=== PATIENT | male | born 1955 | race Caucasian/White ===

== ENCOUNTER 2016-05-23 05:38 | Inpatient (IN) | payer OTHER ==
[~2016-05-23] VITALS: Ht 172.7 cm; Wt 68.0 kg
[2016-05-23] VITALS (14 sets, daily range): BP systolic 133–159; BP diastolic 65–97
[~2016-05-23 05:38] MED LIST: ATORVASTATIN CA40 MG ORAL; LISINOPRIL40 MG ORAL; OXYCONTIN10 MG ORAL; PERCOCET 10-321 EACH ORAL; ZOLPIDEM TARTRA10 MG ORAL
--- NOTE | 2016-05-23 07:07 | Pre-Procedure Note/Attestation ---
Pre-Procedure Note/Attestation Complete Prior to Procedure Procedure Narrative: Painful retained hardware L4-5 posterior spine, for removal. Indications for Procedure Pre-Operative Diagnosis: Painful retained posterior hardware L4-5 Attestation I attest that I discussed the nature of the procedure; its benefits; risks and complications; and alternatives (and the risks and benefits of such alternatives ), prior to the procedure, with the patient (or the patient's legal packaging sales representative). I attest that, if there was a reasonable possibility of needing a blood transfusion, the patient (or the patient's legal packaging sales representative) was given the [facility] standardized written summary, pursuant to the [place] Blood Safety Act ([place] Health and Safety Code # 1645, as amended). I attest that I re-evaluated the patient just prior to the surgery and that there has been no change in the patient's H&P, except as documented below: CIARA STEPHEN May 23, 2016 07:07
[2016-05-23] MEDS ORDERED: Thrombin 5000 units TOPIC ONE (08:34)
[2016-05-23] MEDS ORDERED: Bacitracin 50000 Units Vial ONE (08:35)
[2016-05-23] MEDS ORDERED: Thrombin 5000 units spray kit TOPIC ONE (08:35)
[2016-05-23] MEDS ORDERED: Gelfoam Absorbable 1gm powder pkt TOPIC ONE (08:35)
[2016-05-23] MEDS ORDERED: LR 1000ml ONE (09:00)
[2016-05-23] MEDS ORDERED: Glycopyrrolate 0.2mg/ml 1ml Vial ONE (09:00)
[2016-05-23] MEDS ORDERED: Neostigmine 1mg/ml 10ml Inj ONE (09:00)
[2016-05-23] MEDS ORDERED: Sterile Water Irrig 1000ml IRRIG ONE (09:00)
[2016-05-23] MEDS ORDERED: Zemuron 50mg/5ml Inj IV ONE (09:00)
[2016-05-23] MEDS ORDERED: Propofol 10mg/ml 20ml IV ONE (09:00)
[2016-05-23] MEDS ORDERED: fentaNYL 250mcg/5ml ONE (09:00)
[2016-05-23] MEDS ORDERED: NS Irrig 1000ml ONE (09:00)
[2016-05-23] MEDS ORDERED: Dexamethasone 4mg/ml vial ONE (09:00)
[2016-05-23] MEDS ORDERED: Lidocaine 1% MPF 10mg/ml 5ml ONE (09:00)
[2016-05-23] MEDS ORDERED: Bupivacaine w/Epi 0.5% 30ml Vial INJ ONE (09:16)
[2016-05-23] MEDS ORDERED: LR 1000ml 1,000 ML IVLG SCH (09:25)
--- NOTE | 2016-05-23 09:25 | Anethesia Preoperative Eval ---
Anesthesia Pre-op PMH/ROS General Date of Evaluation: May 23, 2016 Time of Evaluation: 09:31 Anesthesiologist: Sara ASA Score: ASA 3 Mallampati Score Class I : Soft palate, uvula, fauces, pillars visible Class II: Soft palate, uvula, fauces visible Class III: Soft palate, base of uvula visible Class IV: Only hard plate visible Mallampati Classification: Class II Surgeon: Krista Diagnosis: Back Pain Surgical Procedure: Posterior Removal Lumbar Instruments Anesthesia History: none Family History: no anesthesia problems Allergies: Coded Allergies: No Known Allergies (Unverified , 05/20/16) Medications: see eMAR Past Medical History Cardiovascular: Reports: HTN, other - HL Gastrointestinal/Genitourinary: Reports: GERD, other - Prostate Cancer Hematology/Immune: Reports: other - Prostate Cancer PSxH Narrative: Spine SX, B Shoulder SX Anesthesia Pre-op Phys. Exam Physician Exam Last Vital Signs Date Time Temp Pulse Resp B/P Pulse Ox O2 Delivery O2 Flow Rate FiO2 05/23/16 06:30 97.0 71 20 133/89 99 Room Air Constitutional: NAD Neurologic: CN 2-12 intact Cardiovascular: RRR Respiratory: CTA Gastrointestinal: S/NT/ND Airway Exam Mallampati Score: Class II MO: full ROM: limited Teeth: intact Anesthesia Pre-op A/P Risk Assessment & Plan Assessment: ASA 3 Plan: GA, BIS, Glidescope Status Change Before Surgery: No Pre-Antibiotics Dru Grams Ancef IV Given Within 1 Hr of Incision: Yes Time Given: 09:46 Roger Ruiz MD May 23, 2016 09:25
--- NOTE | 2016-05-23 09:28 | Immediate Post-Op Evaluation ---
Immediate Post-Op Evalulation Immediate Post-Op Evalulation Procedure: Posterior Removal Lumbar Instruments Date of Evaluation: May 23, 2016 Time of Evaluation: 11:59 IV Fluids: 1000 LR Blood Products: 0 Estimated Blood Loss: 25 Urinary Output: 0 Blood Pressure Systolic: 156 Blood Pressure Diastolic: 95 Pulse Rate: 93 Respiratory Rate: 16 O2 Sat by Pulse Oximetry: 100 Temperature (Fahrenheit): 97.6 Pain Score (1-10): 3 Nausea: No Vomiting: No Complications 0 Patient Status: awake, reacts, patent, extubated, none Hydration Status: adequate Dru Grams Ancef IV Given Within 1 Hr of Incision: Yes Time Given: 09:46 Roger Ruiz MD May 23, 2016 09:28
[2016-05-23] MEDS ORDERED: Norco 5mg/325mg tab ORAL PRN (09:30)
[2016-05-23] MEDS ORDERED: Midazolam 2mg/2ml Inj IVP PRN (09:30)
[2016-05-23] MEDS ORDERED: Meperidine 25mg/ml Inj IV PRN (09:30)
[2016-05-23] MEDS ORDERED: Ketorolac 30mg Inj IV PRN (09:30)
[2016-05-23] MEDS ORDERED: DiphenhydrAMINE 50mg/ml Inj IVP PRN ×2 (09:30→11:45)
[2016-05-23] MEDS ORDERED: Hydromorphone 0.5mg/0.5ml inj IVP PRN (09:30)
[2016-05-23] MEDS ORDERED: Atropine Inj 1mg/10ml Syr IV PRN (09:30)
[2016-05-23] MEDS ORDERED: Metoclopramide 10mg/2ml Inj IVP PRN (09:30)
[2016-05-23] MEDS ORDERED: fentaNYL 100 mcg/2 mL IV PRN (09:30)
[2016-05-23] MEDS ORDERED: Ketorolac 60mg Inj IV PRN (09:30)
[2016-05-23] MEDS ORDERED: Norco 7.5mg/325mg tab ORAL PRN (09:30)
[2016-05-23] MEDS ORDERED: LORazepam Inj 2mg/ml 1ml IV PRN (09:30)
[2016-05-23] MEDS ORDERED: Labetalol 5mg/ml 20ml vial IV PRN (09:30)
[2016-05-23] MEDS ORDERED: Oxycodone/Acetaminophen 5-325 ORAL PRN (09:30)
[2016-05-23] MEDS ORDERED: Acetaminophen (Non formulary) 100 ML IV ONE (09:45)
[2016-05-23] MEDS ORDERED: Acetaminophen 650 MG SUPP RECTAL PRN (11:45)
[2016-05-23] MEDS ORDERED: LORazepam 1mg tab ORAL PRN (11:45)
--- NOTE | 2016-05-23 11:53 | Operative Note - PDOC ---
Operative Note Operative Note Pre-op Diagnosis: Painful retained posterior hardware L4-5 Procedure: Hardware removal, fusion exploration and fusion supplementation L4-5 Post-op Diagnosis: same as pre-op Surgeon: Krista Beef Grader: CHEO Stephen Anesthesiologist: Migue Story Anesthesia: general Specimen: yes Complications: none Condition: stable Estimated Blood Loss: minimal Implant(s) used?: Yes - Graft On placed in lateral gutter to supplement previous lateral fusion bone CIARA STEPHEN May 23, 2016 11:53
[2016-05-23] MEDS ORDERED: Naloxone 0.4mg/ml Inj IVP PRN (13:00)
[2016-05-23] MEDS ORDERED: Rate Change PCA 1 Each MISC PRN (13:00)
[2016-05-23] MEDS: PCA HYDROmorphone 1mg/ml 30 ML IV PRN (13:32)
--- NOTE | 2016-05-23 16:19 | Diagnostic Imaging Report ---
Indication: Left lower back pain, intraoperative Technique: Digital intraoperative images Comparison: 08/24/2015 Findings: Intraoperative images document removal of previously demonstrated posterior fusion hardware. Impression: Intraoperative images, as described
[2016-05-23] MEDS: Lisinopril 20mg tab ORAL SCH (17:26)
[2016-05-23] MEDS: Docusate 100mg tablet ORAL SCH (17:26)
[2016-05-23] MEDS: ceFAZolin sod 1 GM in D5W 55 ML IV SCH (17:26)
--- NOTE | 2016-05-23 18:27 | Operative Note - Dictated ---
DATE OF OPERATION: 05/23/2016 FACILITY: [facility]. ANESTHESIOLOGIST: Roger Ruiz M.D. ANESTHESIA: General endotracheal with arterial blood pressure monitoring. SURGEON: Ed Velasco M.D. COSMETICS MACHINE OPERATOR: MARLIN Rossi PREOPERATIVE DIAGNOSIS: Status post posterior lumbar interbody graft at the L4-5 level with pedicle screw fixation at L4 and L5 with connecting rods, anterior lumbar interbody fusion at L3-4 with evidence of healing at those levels anteriorly, but pain over the residual posterior hardware, relieved with injection of local anesthetic temporarily. Position of hardware suggesting abutment with the facet joints above. PROCEDURE: Bilateral muscle splitting paralumbar incision for removal of hardware and augmentation of a bilateral lateral graft using [place] after removal of the hardware and preparation of the graft bed. DESCRIPTION OF PROCEDURE: The patient was prepped and draped in the usual manner. He was induced supine and then turned prone onto the Justice table. His hips were well padded as were his knees and chest. Markers were placed over the skin to identify the position of the pedicle screw hardware. Markers were made paramidline at a distance of 5 cm outlining the distance from the midline and the superior and inferior extent of the hardware. Once the patient was prepped and draped in the prone position, two paralumbar incisions were made, carried down through skin and subcutaneous tissue to the extensor muscles, which were then split until the hardware was palpable. The screw heads were identified and the locking screws were removed. The connecting zach was then freed and removed after removing excess bone with a Midas bur. The screws themselves were then removed and the graft bed was inspected. There were connections of bone between L4 and L5, which were not completely solid. The graft bed was prepared with a Midas bur and Alexus was then placed between the transverse process and lateral gutter of L4 and L5 on both the right and left sides. All four screws, two rods, and all pop-lock mechanisms were removed. The graft bed was fully prepared on both sides and then roughened with the Midas and laid over with [place] to promote, so the fixation of the lateral graft would appear that the interbody graft in some views had healed across the interspace. However, the hardware was causing problems of the extensor muscle and the facet joints posteriorly. The wound was closed in layers after copious irrigation, including the muscle and fascial level, skin, and subcutaneous. Blood loss was 100 mL. The patient tolerated the procedure well and returned to recovery room in good condition. Ed Velasco M.D. DR: HIGINIO JOB#: [id number] CC:
[2016-05-23] MEDS: PCA shift volume MISC SCH (19:00)
[2016-05-24 00:18] VITALS: BP 130/70
[2016-05-24] MEDS: ceFAZolin sod 1 GM in D5W 55 ML IV SCH ×2 (02:19→10:17)
[2016-05-24 04:33] VITALS: BP 119/67
[2016-05-24] MEDS: PCA shift volume MISC SCH ×2 (07:21→19:12)
[2016-05-24 08:00] VITALS: BP 136/81
[2016-05-24] MEDS: Docusate 100mg tablet ORAL SCH ×2 (08:48→18:30)
[2016-05-24] MEDS: Lisinopril 20mg tab ORAL SCH (08:48)
--- NOTE | 2016-05-24 09:06 | History & Physical ---
History and Physical History & Physicial 4-17 HP reviewed care noted d/w RN follow up exam LUCIO DOYLE May 24, 2016 09:06
--- NOTE | 2016-05-24 09:07 | General Progress Note ---
Assessment/Plan Assessment/Plan Painful retained posterior hardware L4-5 Hardware removal, fusion exploration and fusion supplementation L4-5 urinary retention history of prostate issues PLAN 1. incentive spirometry 2. quick for now; remove in am and monitor UO 3. PT evaluation and therapy 4. Hydration 5. Pain management 6. discharge once stable with outpatient follow up Subjective Allergies: Coded Allergies: No Known Allergies (Unverified , 05/20/16) Subjective urinary retention needed quick to be placed Objective Last 24 Hour Vital Signs Date Time Temp Pulse Resp B/P Pulse Ox O2 Delivery O2 Flow Rate FiO2 05/24/16 08:48 136/81 05/24/16 04:33 97.7 68 19 119/67 97 Room Air 05/24/16 04:00 18 05/24/16 00:18 98.1 80 19 130/70 97 Nasal Cannula 3.0 05/24/16 00:00 18 05/23/16 20:26 97.9 84 19 133/72 98 Nasal Cannula 3.0 05/23/16 20:00 18 05/23/16 17:26 150/88 05/23/16 17:16 98.4 71 18 150/88 99 Nasal Cannula 3.0 05/23/16 15:21 18 05/23/16 14:51 18 05/23/16 14:02 98.8 05/23/16 14:00 18 05/23/16 13:45 16 05/23/16 13:45 98.0 83 18 141/65 100 Nasal Cannula 3.0 05/23/16 13:32 18 05/23/16 13:30 77 17 145/87 100 Nasal Cannula 3.0 05/23/16 13:15 81 18 142/89 100 Nasal Cannula 3.0 05/23/16 13:01 98.8 05/23/16 13:00 73 18 143/89 100 Nasal Cannula 3.0 05/23/16 12:45 73 16 145/92 100 Nasal Cannula 3.0 05/23/16 12:30 73 17 157/97 100 Nasal Cannula 3.0 05/23/16 12:20 73 18 156/96 100 Nasal Cannula 3.0 05/23/16 12:10 81 19 158/97 100 Nasal Cannula 3.0 05/23/16 11:58 81 19 158/85 99 Simple Mask 6.0 05/23/16 11:53 83 16 159/93 99 Simple Mask 6.0 05/23/16 11:49 93 16 100 05/23/16 11:48 97.6 95 20 158/79 99 Simple Mask 6.0 Intake and Output 05/23/16 05/24/16 19:00 07:00 Intake Total 1650 ml 1105 ml Output Total 25 ml 2050 ml Balance 1625 ml -945 ml Intake Oral 350 ml IV Total 1300 ml 1105 ml Output Urine Total 1400 ml Estimated Blood Loss 25 ml Other 650 ml # Voids 4 Height (Feet): 5 Height (Inches): 8.00 Weight (Pounds): 150 Objective WDWN NAD clear breath sounds bilaterally without rhonchi or wheeze [id number] without MRG NABS nontender no HSM no CCE nonfocal LUCIO DOYLE May 24, 2016 09:07
[2016-05-24 12:00] VITALS: BP 100/62
--- NOTE | 2016-05-24 12:22 | 48 Hour Post Anesthesia Eval ---
Post Anesthesia Evaluation Procedure: Posterior Removal Lumbar Instruments Date of Evaluation: May 24, 2016 Time of Evaluation: 12:21 Blood Pressure Systolic: 136 0: 80 Pulse Rate: 77 Respiratory Rate: 20 Temperature (Fahrenheit): 97.3 O2 Sat by Pulse Oximetry: 96 Airway: patent Nausea: No Vomiting: No Pain Intensity: 3 Hydration Status: adequate Cardiopulmonary Status: STABLE Mental Status/LOC: patient returned to baseline Follow-up Care/Observations: NA Post-Anesthesia Complications: NA Follow-up care needed: N/A JAYNE MEHTA M.D. May 24, 2016 12:22
[2016-05-24] MEDS: PCA HYDROmorphone 1mg/ml 30 ML IV PRN (14:32)
[2016-05-24] MEDS: Milk of Magnesia 30ml Ud ORAL PRN ×2 (14:51→20:34)
[2016-05-24 16:00] VITALS: BP 128/77
[2016-05-24 20:00] VITALS: BP 131/78
[2016-05-25 04:00] VITALS: BP 110/67
[2016-05-25] MEDS: PCA shift volume MISC SCH ×2 (07:00→19:21)
[2016-05-25 08:00] VITALS: BP 117/61
[2016-05-25] MEDS ORDERED: Naloxone 0.4mg/ml Inj IVP PRN ×2 (08:08→13:00)
[2016-05-25] MEDS: Lisinopril 20mg tab ORAL SCH (08:38)
[2016-05-25] MEDS: Milk of Magnesia 30ml Ud ORAL PRN ×2 (08:38→13:07)
[2016-05-25] MEDS: Docusate 100mg tablet ORAL SCH ×2 (08:39→17:05)
--- NOTE | 2016-05-25 08:56 | General Progress Note ---
Assessment/Plan Assessment/Plan Painful retained posterior hardware L4-5 Hardware removal, fusion exploration and fusion supplementation L4-5 urinary retention history of prostate issues PLAN 1. incentive spirometry 2. remove quick and call if retention 3. PT evaluation and therapy 4. Hydration 5. Pain management 6. discharge in am Subjective Allergies: Coded Allergies: No Known Allergies (Unverified , 05/20/16) Subjective doing better pain better Objective Last 24 Hour Vital Signs Date Time Temp Pulse Resp B/P Pulse Ox O2 Delivery O2 Flow Rate FiO2 05/25/16 08:38 117/61 05/25/16 08:00 19 05/25/16 08:00 97.9 95 21 117/61 97 Room Air 05/25/16 04:00 97.7 87 20 110/67 96 Room Air 05/25/16 04:00 16 05/25/16 00:00 16 05/24/16 20:00 98.1 77 20 131/78 99 Room Air 05/24/16 20:00 18 05/24/16 16:00 20 05/24/16 16:00 99.0 75 20 128/77 98 Room Air 05/24/16 15:02 97.3 05/24/16 14:35 18 05/24/16 12:22 77 20 96 05/24/16 12:00 16 05/24/16 12:00 97.9 75 18 100/62 99 Room Air Intake and Output 05/24/16 05/25/16 19:00 07:00 Intake Total 1345 ml 860 ml Output Total 2900 ml 2825 ml Balance -1555 ml -1965 ml Intake Oral 240 ml 360 ml IV Total 1105 ml 500 ml Output Urine Total 2900 ml 2825 ml # Bowel Movements 1 1 Height (Feet): 5 Height (Inches): 8.00 Weight (Pounds): 150 Objective WDWN NAD clear breath sounds bilaterally without rhonchi or wheeze [id number] without MRG NABS nontender no HSM no CCE nonfocal LUCIO DOYLE May 25, 2016 08:56
[2016-05-25] MEDS ORDERED: DiphenhydrAMINE 50mg/ml Inj IVP PRN (09:00)
[2016-05-25] MEDS ORDERED: Rate Change PCA 1 Each MISC PRN (09:00)
[2016-05-25] MEDS ORDERED: HYDROmorphone 1mg/ml Carpuject SUBQ PRN (11:45)
[2016-05-25 12:00] VITALS: BP 117/70
[2016-05-25] MEDS ORDERED: Norco 7.5mg/325mg tab ORAL PRN ×2 (13:00)
[2016-05-25] MEDS ORDERED: HYDROmorphone 1mg/ml Carpuject IVP PRN (13:00)
[2016-05-25] MEDS ORDERED: Norco 5mg/325mg tab ORAL PRN (13:00)
[2016-05-25] MEDS: PCA HYDROmorphone 1mg/ml 30 ML IV PRN (14:22)
[2016-05-25 16:00] VITALS: BP 119/66
[2016-05-25 20:00] VITALS: BP 119/68
[2016-05-25] MEDS: LORazepam 1mg tab ORAL PRN (23:21)
[2016-05-26 04:00] VITALS: BP 122/75
[2016-05-26] MEDS: PCA shift volume MISC SCH ×2 (07:16→19:00)
[2016-05-26 08:00] VITALS: BP 119/69
[2016-05-26] MEDS: Lisinopril 20mg tab ORAL SCH (08:27)
[2016-05-26] MEDS: Docusate 100mg tablet ORAL SCH ×2 (08:27→20:10)
[2016-05-26] MEDS: LORazepam 1mg tab ORAL PRN (09:39)
--- NOTE | 2016-05-26 10:36 | General Progress Note ---
Assessment/Plan Assessment/Plan Painful retained posterior hardware L4-5 Hardware removal, fusion exploration and fusion supplementation L4-5 urinary retention history of prostate issues PLAN 1. incentive spirometry 2. monitor UO; doing well 3. PT evaluation and therapy 4. Hydration 5. Pain management 6. discharge if pain controlled Subjective Allergies: Coded Allergies: No Known Allergies (Unverified , 05/20/16) Subjective still with pain and spasms Objective Last 24 Hour Vital Signs Date Time Temp Pulse Resp B/P Pulse Ox O2 Delivery O2 Flow Rate FiO2 05/26/16 08:27 119/69 05/26/16 08:00 18 05/26/16 08:00 98.1 91 18 119/69 98 Room Air 05/26/16 05:36 98.1 05/26/16 04:00 97.9 87 18 122/75 99 Room Air 05/26/16 04:00 18 05/26/16 00:00 18 05/25/16 20:00 98.1 85 18 119/68 98 Room Air 05/25/16 20:00 18 05/25/16 16:00 18 05/25/16 16:00 97.0 85 20 119/66 99 Room Air 05/25/16 15:18 96.9 05/25/16 15:18 96.9 05/25/16 12:00 19 05/25/16 12:00 96.9 80 20 117/70 98 Room Air Intake and Output 05/25/16 05/26/16 19:00 07:00 Intake Total 500 ml 300 ml Output Total 300 ml 500 ml Balance 200 ml -200 ml Intake Oral 500 ml 300 ml Output Urine Total 300 ml 500 ml # Voids 4 2 # Bowel Movements 1 1 Height (Feet): 5 Height (Inches): 8.00 Weight (Pounds): 150 Objective WDWN NAD clear breath sounds bilaterally without rhonchi or wheeze [id number] without MRG NABS nontender no HSM no CCE nonfocal LUCIO DOYLE May 26, 2016 10:36
[2016-05-26] MEDS: Milk of Magnesia 30ml Ud ORAL PRN ×2 (11:19→20:10)
[2016-05-26 12:00] VITALS: BP 107/58
[2016-05-26] MEDS: PCA HYDROmorphone 1mg/ml 30 ML IV PRN (14:36)
[2016-05-26 16:00] VITALS: BP 101/55
[2016-05-26 20:00] VITALS: BP 115/70
[2016-05-27] VITALS: BP 102/69
[2016-05-27 04:00] VITALS: BP 111/69
[2016-05-27] MEDS: Milk of Magnesia 30ml Ud ORAL PRN (04:06)
[2016-05-27] MEDS ORDERED: Rate Change PCA 1 Each MISC PRN ×2 (07:15→10:45)
[2016-05-27] MEDS ORDERED: PCA HYDROmorphone 1mg/ml 30 ML IV PRN (07:30)
[2016-05-27] MEDS ORDERED: DiphenhydrAMINE 50mg/ml Inj IVP PRN ×2 (07:30→13:30)
[2016-05-27] MEDS ORDERED: LORazepam 1mg tab ORAL PRN ×2 (07:30→11:30)
[2016-05-27] MEDS ORDERED: Naloxone 0.4mg/ml Inj IVP PRN ×4 (07:30→11:30)
[2016-05-27] MEDS: Docusate 100mg tablet ORAL SCH (08:06)
[2016-05-27] MEDS: Lisinopril 20mg tab ORAL SCH (08:07)
[2016-05-27 08:50] VITALS: BP 121/65
[2016-05-27] MEDS ORDERED: HYDROmorphone 1mg/ml Carpuject IVP PRN ×2 (09:00→11:30)
[2016-05-27] MEDS ORDERED: HYDROmorphone 1mg/ml Carpuject SUBQ PRN ×2 (09:00→11:30)
[2016-05-27] MEDS ORDERED: Norco 5mg/325mg tab ORAL PRN ×2 (09:00→11:30)
[2016-05-27] MEDS ORDERED: Norco 7.5mg/325mg tab ORAL PRN ×4 (09:00→11:30)
--- NOTE | 2016-05-27 09:32 | General Progress Note ---
Assessment/Plan Assessment/Plan Painful retained posterior hardware L4-5 Hardware removal, fusion exploration and fusion supplementation L4-5 urinary retention history of prostate issues PLAN 1. incentive spirometry 2. stable pain levels 3. PT evaluation and therapy noted 4. Hydration 5. Pain management controlled 6. discharge today Subjective Allergies: Coded Allergies: No Known Allergies (Unverified , 05/20/16) Subjective improved pain and spasms Objective Last 24 Hour Vital Signs Date Time Temp Pulse Resp B/P Pulse Ox O2 Delivery O2 Flow Rate FiO2 05/27/16 08:50 98.2 84 21 121/65 99 Room Air 05/27/16 08:07 121/65 05/27/16 08:00 16 05/27/16 04:00 16 05/27/16 04:00 97.7 65 16 111/69 99 Room Air 05/27/16 00:00 97.7 77 18 102/69 100 Room Air 05/27/16 00:00 16 05/26/16 20:00 98.1 84 18 115/70 100 Room Air 05/26/16 20:00 16 05/26/16 16:00 98.1 69 17 101/55 96 Room Air 05/26/16 16:00 18 05/26/16 12:00 97.7 81 18 107/58 97 Room Air 05/26/16 12:00 18 Intake and Output 05/26/16 05/27/16 19:00 07:00 Intake Total 500 ml 620 ml Output Total 500 ml Balance 0 ml 620 ml Intake Oral 500 ml 620 ml Output Urine Total 500 ml # Voids 2 5 # Bowel Movements 1 Height (Feet): 5 Height (Inches): 8.00 Weight (Pounds): 150 Objective WDWN NAD clear breath sounds bilaterally without rhonchi or wheeze [id number] without MRG NABS nontender no HSM no CCE nonfocal LUCIO DOYLE May 27, 2016 09:32
[2016-05-27] MEDS ORDERED: PCA shift volume MISC SCH ×2 (19:00)
[2016-05-28] MEDS ORDERED: PCA HYDROmorphone 1mg/ml 30 ML IV PRN (07:30)
--- NOTE | 2016-05-30 07:49 | Discharge Summary ---
Discharge Summary Hospital Course Date of Admission May 23, 2016 at 05:38 Date of Discharge May 27, 2016 at 11:15 Admitting Diagnosis HPI Edwardo Brice is a 61 year old male who was admitted on May 23, 2016 at 05:38 for low back pain due to painful residual posterior hardware patient with hx of posterior lumbar interbody graft at the L4-5 with pedicle screw fixation at L4 and L5 connecting rods, hx of anterior lumbar interbody fusion at L3-L4 however pain over the residual posterior hardware, relieved with injection of local anesthetic only temporarily. patient was admitted fro elective surgery- removal of hardware Consultations Daphne Albarran - IM Procedures s/p 05/23 Bilateral muscle splitting paralumbar incision for removal of hardware and augmentation of a bilateral lateral graft [place] after removal of the hardware and preparation of the graft bed - by dr Velasco [facility] Course s/p hardware removal, fusion exploration and fusion supplementation L4-5 on course of recovery uneventful pain management IS at the bedside, taught how to use and encourage to use q 1 hr while in bed PT eval and Rx IVF initiially able to ambulate , pain controlled, tolerated diet, voided freely BP management with current regimen, stable dc home fup as outpt with surgery DISCHARGE DIAGNOSES Painful retained posterior hardware L4-5 s/p hardware removal, fusion exploration and fusion supplementation L4-5 hx of posterior lumbar interbody graft at the L4-5 with connecting rods, hx of anterior lumbar interbody fusion at L3-L4 with evidence of healing at those levels anteriorly, urinary retention history of prostate HTN Discharge Medications Continued Medications: Atorvastatin Calcium* (Atorvastatin Calcium*) 40 Mg Tablet 40 MG ORAL DAILY, TAB Lisinopril* (Lisinopril*) 40 Mg Tablet 40 MG ORAL DAILY, TAB Zolpidem Tartrate* (Zolpidem Tartrate*) 10 Mg Tablet 10 MG ORAL BEDTIME PRN for Insomnia, TAB 0 Refills Discharge Condition Upon Discharge: stable Discharge Disposition Patient was discharged to Home () Discharge Diagnoses: Discharge Instructions Discharge Instructions Special Instructions I have been assigned to complete a D/C Summary on this account. I was not involved in the patient management Maureen Andersen NP ([place]) May 30, 2016 07:49
== END 2016-05-27 11:15 | disposition home or self-care (01) | DRG 460 ==
LOC: SDSOVERFLO 05:38 → 3E 14:37
PROC: 0SG00K1 Fusion of Lumbar Vertebral Joint with Nonautologous Tissue Substitute, Posterior Approach, Posterior Column, Open Approach (ICD-10-PCS; principal; 2016-05-23 08:00)
PROC: 0SP004Z Removal of Internal Fixation Device from Lumbar Vertebral Joint, Open Approach (ICD-10-PCS; principal; 2016-05-23 08:00)
DX: T84.84XA Pain due to internal orthopedic prosthetic devices, implants and grafts, initial encounter (principal); I10 Essential (primary) hypertension; Z98.1 Arthrodesis status; Y83.8 Other surgical procedures as the cause of abnormal reaction of the patient, or of later complication, without mention of misadventure at the time of the procedure; R33.9 Retention of urine, unspecified
CPT/HCPCS: 36415; 72020; 76001; 86850; 86900; 86901; 87081; 94003; 94150; J2180; J2405; J2710